=== PATIENT | female | born 1955 | race Caucasian/White ===

== ENCOUNTER 2020-08-19 10:59 | Emergency (ER) | payer OTHER, MEDICARE ==
[~2020-08-19] VITALS: Ht 157.5 cm; Wt 76.7 kg
[~2020-08-19 10:59] MED LIST: AMOXICILLIN875 MG PO; DECONGESTANT30 MG PO; MUCINEX600 MG PO; ZPAK
[2020-08-19] MEDS ORDERED: LISINOPRIL2.5 MG PO (11:12)
[2020-08-19] MEDS ORDERED: VITAMIN D310 MC4 PO (11:13)
[2020-08-19] MEDS ORDERED: CALCIUM500 MG PO (11:13)
[2020-08-19] MEDS ORDERED: NORCO 5-325 TA1 EAC2 PO (12:34)
[2020-08-19 12:55] VITALS: BP 154/78
== END 2020-08-19 12:55 | disposition home or self-care (01) ==
LOC: M.ERS 10:59
DX: S82.091A Other fracture of right patella, initial encounter for closed fracture (principal); Z98.51 Tubal ligation status; W01.0XXA Fall on same level from slipping, tripping and stumbling without subsequent striking against object, initial encounter; Y93.89 Activity, other specified; Y92.89 Other specified places as the place of occurrence of the external cause; Y99.8 Other external cause status